=== PATIENT | female | born 1995 | race Asian ===

== ENCOUNTER 2017-01-09 19:00 | Inpatient (IN) | payer OTHER ==
[~2017-01-09] VITALS: Ht 162.6 cm; Wt 77.1 kg
[2017-01-09] MEDS ORDERED: NALBUPHINE HYDROCHLORIDE 10 MG/ML VIAL IVP PRN (20:50)
[2017-01-09] MEDS ORDERED: OXYTOCIN 10 UNITS/ML VIAL IM ONE (20:50)
[2017-01-09] MEDS ORDERED: OXYTOCIN 20 UNITS/LR PREMIX 1,000 ML IV SCH (20:50)
[2017-01-09] MEDS ORDERED: MISOPROSTOL 25 MCG TAB VG PRN (20:50)
[2017-01-09] MEDS ORDERED: PROMETHAZINE 25 MG/ML VIAL IVP PRN (20:50)
[2017-01-09] MEDS ORDERED: MISOPROSTOL 25 MCG TAB ONE (21:26)
[2017-01-09] MEDS: LACTATED RINGERS 1,000 ML IV SCH (21:36)
[2017-01-09] MEDS ORDERED: PREN-546 PO (22:10)
[2017-01-09] MEDS ORDERED: FERR-193 PO (22:10)
[2017-01-09 22:13] LABS: BASOPHILS # (AUTO) 0.2 K/uL (0.00-0.22); BASOPHILS % (AUTO) 1.5 % (0.0-2.0); EOSINOPHILS # (AUTO) 0.3 K/uL (0-0.4); EOSINOPHILS % (AUTO) 2.7 % (0.0-4.0); HEMATOCRIT 36.6 % (36-48); HEMOGLOBIN 12.2 g/dL (12.0-16.0); LYMPHOCYTES # (AUTO) 1.7 K/uL (2.5-16.5); LYMPHOCYTES % (AUTO) 15.9 % (20.5-51.1); MEAN CORPUSCULAR HEMOGLOBIN 31 pg (27-31); MEAN CORPUSCULAR HGB CONC 33 g/dL (33-37); MEAN CORPUSCULAR VOLUME 92 fL (80-94); MONOCYTES # (AUTO) 0.8 K/uL (0.8-1.0); MONOCYTES % (AUTO) 7.3 % (1.7-9.3); NEUTROPHILS # (AUTO) 7.9 K/uL (1.8-7.7); NEUTROPHILS % (AUTO) 72.6 % (42.2-75.2); PLATELET COUNT (AUTO) 254 K/uL (140-450); RED BLOOD CELL COUNT(AUTO) 3.98 MIL/uL (4.20-5.40); RED CELL DISTRIBUTION WIDTH 13.1 % (11.6-13.7); WHITE BLOOD COUNT (AUTO) 10.9 K/uL (4.5-11.0)
[2017-01-09 22:14] VITALS: BP 122/68
[2017-01-09 22:25] LABS: APPEARANCE,URINE HAZY (CLEAR); BILIRUBIN,URINE NEGATIVE (NEGATIVE); BLOOD, URINE NEGATIVE (NEGATIVE); COLOR,URINE YELLOW (YELLOW); LEUKOCYTE ESTERASE ,URINE 3+ (NEGATIVE); NITRITE, URINE NEGATIVE (NEGATIVE); PROTEIN,URINE NEGATIVE (NEGATIVE); UGLUCOSE NEGATIVE (NEGATIVE); UROBILINOGEN,URINE 0.2 EU/dL (0.2 - 1)
[2017-01-09 23:01] LABS: HIV RAPID SCREEN NON-REACTIVE (NON REACTIV)
[2017-01-09 23:07] LABS: BACTERIA,URINE 4+ /HPF (None Seen); RBC,URINE 0-5 (RARE) /HPF (0-5); SQUAMOUS EPITHELIAL CELL,UR 20-40 /LPF (0-3 (FEW)); WBC,URINE TOO MANY TO COUNT /HPF (0-5)
[2017-01-10] MEDS ORDERED: AMPICILLIN 2,000 MG VIAL ONE ×3 (00:20→07:55)
[2017-01-10] MEDS ORDERED: PROMETHAZINE 25 MG/ML VIAL ONE (01:58)
[2017-01-10] MEDS ORDERED: NALBUPHINE HYDROCHLORIDE 10 MG/ML VIAL ONE (01:58)
[2017-01-10] MEDS: LACTATED RINGERS 1,000 ML IV SCH ×2 (02:35→05:25)
[2017-01-10] MEDS ORDERED: BUPIVACAINE 0.125%/NS PREMIX 250 ML ONE (02:59)
[2017-01-10] MEDS ORDERED: AMPICILLIN 2,000 MG in NACL 0.9% 100 ML IV SCH (04:00)
[2017-01-10] MEDS ORDERED: OXYTOCIN 20 UNITS/LR PREMIX 1,000 ML IV ONE (04:47)
[2017-01-10] MEDS ORDERED: HYDROcodone/APAP 5/325 MG 1 TAB TAB PO PRN (07:35)
[2017-01-10] MEDS ORDERED: TEMAZEPAM 15 MG CAP PO PRN (07:35)
[2017-01-10] MEDS ORDERED: oxyCODONE/APAP 5/325 MG 1 TAB TAB PO PRN (07:35)
[2017-01-10] MEDS ORDERED: WITCH HAZEL 40 PAD PACKAGE TP PRN (07:35)
[2017-01-10] MEDS ORDERED: MEASLES, MUMPS, AND RUBELLA 1 VIAL SQVAC PRN (07:35)
[2017-01-10] MEDS ORDERED: OXYTOCIN 10 UNITS/ML VIAL IM PRN (07:35)
[2017-01-10] MEDS ORDERED: BENZOCAINE/MENTHOL 20%-0.5% 60 GM CAN TP PRN (07:35)
[2017-01-10] MEDS ORDERED: DOCUSATE SOD/SENNA 50/8.6 MG 1 TAB PO SCH (21:00)
[2017-01-11 07:21] LABS: HEMATOCRIT 28.9 % (36-48); HEMOGLOBIN 9.6 g/dL (12.0-16.0)
[2017-01-11] MEDS ORDERED: IBUP-2213 PO (09:14)
[2017-01-11] MEDS: IBUPROFEN 800 MG TAB PO PRN (17:22)
[2017-01-11] MEDS ORDERED: DOCUSATE SOD/SENNA 50/8.6 MG 1 TAB PO SCH (21:00)
[2017-01-12] MEDS: IBUPROFEN 800 MG TAB PO PRN (09:00)
[2017-01-12 13:46] LABS: RAPID PLASMA REAGIN NON-REACTIVE (Non Reactiv)
== END 2017-01-12 11:55 | disposition home or self-care (01) | DRG 560 ==
LOC: MLD 19:00 → PREOBSVTOIN 20:00 → MFCC 01-10 08:48
PROVIDERS: ADMIT Obstetrics & Gynecology; ATTEND Obstetrics & Gynecology
PROC: 00HU33Z Insertion of Infusion Device into Spinal Canal, Percutaneous Approach (ICD-10-PCS; 2017-01-09)
PROC: 3E0R3CZ (ICD-10-PCS; 2017-01-09)
PROC: 10E0XZZ Delivery of Products of Conception, External Approach (ICD-10-PCS; principal; 2017-01-10)
PROC: 10907ZC Drainage of Amniotic Fluid, Therapeutic from Products of Conception, Via Natural or Artificial Opening (ICD-10-PCS; 2017-01-10)
PROC: 3E0P7GC Introduction of Other Therapeutic Substance into Female Reproductive, Via Natural or Artificial Opening (ICD-10-PCS; 2017-01-10)
PROC: 0W8NXZZ Division of Female Perineum, External Approach (ICD-10-PCS; 2017-01-10)
PROC: 3E0234Z Introduction of Serum, Toxoid and Vaccine into Muscle, Percutaneous Approach (ICD-10-PCS; 2017-01-11)
DX: O99.52 Diseases of the respiratory system complicating childbirth (principal); R56.9 Unspecified convulsions; O89.4 Spinal and epidural anesthesia-induced headache during the puerperium; J45.909 Unspecified asthma, uncomplicated; O99.354 Diseases of the nervous system complicating childbirth; Z88.1 Allergy status to other antibiotic agents; Z37.0 Single live birth; Z3A.40 40 weeks gestation of pregnancy; Z86.19 Personal history of other infectious and parasitic diseases; Z83.3 Family history of diabetes mellitus; Z82.49 Family history of ischemic heart disease and other diseases of the circulatory system; Z82.5 Family history of asthma and other chronic lower respiratory diseases; Z81.2 Family history of tobacco abuse and dependence; Z23 Encounter for immunization
CPT/HCPCS: 36415; 51702; 59200; 59409; 81001; 85018; 85025; 86592; 86886; 86900; 86901; 87086; 90715; J0290; J2300; J2550; J2590; J3490; J7120